=== PATIENT | male | born 1980 | race Caucasian/White ===

== ENCOUNTER 2017-08-27 19:24 | Emergency (ER) | payer OTHER ==
[2017-08-27 19:30] VITALS: RESP 18
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
[2017-08-27] MEDS ORDERED: ONDANSETRON 4 MG/2 ML VIAL IVP ONE (19:53)
[2017-08-27] MEDS ORDERED: NS 1,000 ML IV ONE ×2 (19:53)
[2017-08-27 20:15] LABS: PLATELET COUNT 275 10^3/uL (150-400)
[2017-08-27] MEDS ORDERED: ONDANSETRON 4MG PREPACK#2 BTL TAKEHOME ONE (21:56)
[2017-08-27 22:12] VITALS: BP 142/89; PULSE 69; TEMP 98.6; O2SAT 95
[2017-08-27 22:23] LABS: MALARIAL PREP NONE SEEN (NONE SEEN)
== END 2017-08-27 22:11 | disposition home or self-care (01) ==
DX: B34.9 Viral infection, unspecified (principal); E86.0 Dehydration; J45.909 Unspecified asthma, uncomplicated; E86.9 Volume depletion, unspecified; Z87.891 Personal history of nicotine dependence
CPT/HCPCS: 96374; J2405

== ENCOUNTER 2017-08-30 20:47 | Emergency (ER) | payer OTHER ==
[2017-08-30 20:51] VITALS: TEMP 97.9
[2017-08-30] MEDS ORDERED: fentaNYL 100 MCG/2 ML INJ IVP ONE (21:04)
[2017-08-30] MEDS ORDERED: NS 1,000 ML IV ONE (21:04)
[2017-08-30] MEDS ORDERED: ONDANSETRON 4 MG/2 ML VIAL IVP ONE (21:04)
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
[2017-08-30 21:20] LABS: PLATELET COUNT 316 10^3/uL (150-400)
[2017-08-30] MEDS ORDERED: IOPAMIDOL (ISOVUE-300) 100 ML BTL ONE (21:36)
[2017-08-30] MEDS ORDERED: KETOROLAC 15 MG/1 ML SDV IVP ONE (22:26)
[2017-08-30 22:35] VITALS: RESP 18
[2017-08-30 22:52] VITALS: BP 124/80; PULSE 73; O2SAT 96
== END 2017-08-30 22:51 | disposition home or self-care (01) ==
DX: K52.9 Noninfective gastroenteritis and colitis, unspecified (principal); E86.9 Volume depletion, unspecified; Z87.891 Personal history of nicotine dependence
CPT/HCPCS: 96374; J1885; J2405; J3010; Q9967